=== PATIENT | male | born 1990 | race Caucasian/White ===

== ENCOUNTER 2021-08-14 09:56 | Emergency (ER) | payer OTHER | END 2021-08-14 12:38 | disposition home or self-care (01) | LOC: JD.ED 09:56 | DX: R00.1 Bradycardia, unspecified (principal); E03.9 Hypothyroidism, unspecified; Z79.899 Other long term (current) drug therapy; Z20.822 Contact with and (suspected) exposure to COVID-19 | CPT/HCPCS: 36415; 80053; 83735; 84443; 85025; 93005; 93225; 93226; 99284-25; U0002 ==